=== PATIENT | female | born 1995 | race Caucasian/White ===

== ENCOUNTER 2022-07-09 15:53 | Emergency (ER) | payer SELFPAY ==
[~2022-07-09] VITALS: Ht 147.3 cm; Wt 59.0 kg
[2022-07-09 16:12] VITALS: BP 113/56
[2022-07-09] MEDS ORDERED: IBUP-2029 MT (18:49)
[2022-07-09] MEDS ORDERED: IBUPROFEN 600MG TABLET PO NR (19:00)
== END 2022-07-09 19:36 | disposition home or self-care (01) ==
LOC: ER 15:53
DX: N64.4 Mastodynia (principal)
CPT/HCPCS: 81025; 99282

== ENCOUNTER 2022-11-27 00:47 | Emergency (ER) | payer OTHER ==
[~2022-11-27] VITALS: Ht 149.9 cm; Wt 50.0 kg
[~2022-11-27 00:47] MED LIST: IBUP-2029 MT
[2022-11-27 01:26] VITALS: O2SAT 98
[2022-11-27] MEDS ORDERED: BACITRACIN ZINC OINT UDPKT TOP ONE (02:30)
[2022-11-27 03:30] VITALS: BP 113/65; PULSE 59; RESP 18; TEMP 98
== END 2022-11-27 03:30 | disposition home or self-care (01) ==
LOC: ER 00:47
DX: S01.111A Laceration without foreign body of right eyelid and periocular area, initial encounter (principal); Y04.0XXA Assault by unarmed brawl or fight, initial encounter; Y93.89 Activity, other specified; Y92.89 Other specified places as the place of occurrence of the external cause; Y99.8 Other external cause status
CPT/HCPCS: 12011; 99282

== ENCOUNTER 2024-11-21 18:57 | Emergency (ER) | payer OTHER ==
[~2024-11-21] VITALS: Ht 157.5 cm; Wt 54.0 kg
[~2024-11-21 18:57] MED LIST changes: +ACET-2708 MT; -IBUP-2029 MT
[2024-11-21 19:06] VITALS: O2SAT 98
[2024-11-21 20:48] LABS: BASOPHILS % 0.2 % (0.0-2.0); EOSINOPHILS % 1.6 % (0.0-5.0); HEMATOCRIT. 37.7 % (36.0-48.0); HEMOGLOBIN. 12.2 g/dL (12.0-16.0); LYMPHOCYTES % 25.8 % (20.0-50.0); MEAN PLATELET VOLUME 9.1 fl (7.4-10.4); MONOCYTES % 5.8 % (2.0-8.0); NEUTROPHILS % 66.6 % (40.0-76.0); PLATELET 261 x1000/uL (130-400); RED BLOOD CELL COUNT 4.15 mill/uL (4.2-5.4); RED CELL DISTRIBUTION WIDTH 14.0 % (11.6-14.6)
[2024-11-21 21:00] LABS: CREATININE 0.5 mg/dL (0.6-1.0)
[2024-11-21 21:01] LABS: UREA NITROGEN BLOOD 6 mg/dL (9-23)
[2024-11-21 21:15] LABS: B-HCG QUANTITATIVE 8368 mIU/mL (<6)
[2024-11-21 21:16] VITALS: BP 114/58; PULSE 52; RESP 10; TEMP 36.9; O2SAT 99
== END 2024-11-21 23:04 | disposition home or self-care (01) ==
LOC: ER 18:57
DX: O20.0 Threatened abortion (principal); Z3A.20 20 weeks gestation of pregnancy; F12.90 Cannabis use, unspecified, uncomplicated
CPT/HCPCS: 36415; 76801; 80048; 81025; 84702; 85025; 86850; 86900; 99284